=== PATIENT | female | born 1935 | race Caucasian/White ===

== ENCOUNTER 2017-08-13 19:07 | Emergency (ER) | payer OTHER ==
--- NOTE | 2017-08-13 19:15 | PDOC ---
History of Present Illness - General History Source: Patient, Family, Old Records Exam Limitations: No Limitations - History of Present Illness Initial Comments: 08/13/17 21:00 The patient is a 82 year old female from home and presenting with her son, who presents to the emergency department with right shoulder pain onset today. She reports that she was cooking today when her shoulder pain began and decided to come to the ED for evaluation. She describes her pain as ranging from mild to moderate, constant, sharp and worsening, with radiation to the neck, chest and epigastric region. The son notes that the patient took 2 Tylenols today with little to no relief of her symptoms, as well as a heating pad with little to no relief. She also reports shortness of breath, which she notes is secondary to her pain. She denies any kind of fall or injury. The patient is right hand dominant. The patient denies chest pain, headache and dizziness. Denies fever, chills, nausea, vomit, diarrhea and constipation. Denies dysuria, frequency, urgency and hematuria. PAST MEDICAL HISTORY: HLD PAST SURGICAL HISTORY: Bakers Cyst FAMILY HISTORY: no pertinent history SOCIAL HISTORY: Pt lives with family and is retired MEDICATIONS: reviewed General: No fevers or chills, no weakness, no weight loss HEENT: No change in vision. No sore throat,. No ear pain CardioVascular: No chest pain or shortness of breath Respiratory:No cough, or wheezing. Gastrointestinal: No nausea, vomiting, diarrhea or constipation, No rectal bleeding Genitourinary: No dysuria, hematuria, or frequency Musculoskeletal: (+) Right shoulder pain. Neck pain. No joint or muscle pain or swelling Neurologic: No headache, vertigo, dizziness or loss of consciousness Psychiatric: nor depression Skin: No rashes or easy bruising Endocrine: no increased thirst or abnormal weight change Allergic: no skin or latex allergy All other systems reviewed and normal General: Well-nourished well-developed individual, no acute distress HEENT: Throat: Normal, tonsils normal, no erythema or exudate Neck: Supple, no meningeal signs, no lymphadenopathy Eyes::Pupils equal reactive and round, extraocular motion intact Chest: Nontender to palpation Cardiac: S1-S2 normal, regular rate and rhythm, no murmurs rubs or gallops Respiratory: Lungs clear to auscultation bilateral Abdomen: Soft, nondistended, normal bowel sounds, nontender to palpation diffusely Extremities: Warm, dry, no cyanosis, clubbing, or edema Skin: No rashes Neuro: Alert and oriented x3, nonfocal exam, grossly intact, normal gait Psych: Normal mood and affect 08/13/17 21:01 <Evgeny Chambers - Last Filed: 08/13/17 21:03> - General History Source: Patient Exam Limitations: No Limitations - History of Present Illness Initial Comments: A portion of this note was documented by scribe services under my direction. I have reviewed the details of the note, within reason, and agree with the documentation. The case summary and management plan written by me. Assessment and plan: This is a 82-year-old female who comes in with her son for evaluation of acute onset of right shoulder pain. Patient was cutting onions when she developed the pain. There was some radiation to the neck but denied any chest pain shortness of breath or any other associated symptoms. However given the patient's age I did do a basic workup including an EKG and chest x- ray. Also had a shoulder x-ray that showed a significant amount of arthritis and several calcified area free floating bodies within the joint. Most likely patient's pain is secondary to entrapment of one of those calcified spurs. Patient was given some morphine here in the emergency room as she is unable to take any NSAIDs secondary to severe ALLERGIC reaction to them. Patient put in a sling and given a prescription for some Percocet and will follow-up with her orthopedist. <Anant Robbins I - Last Filed: 08/13/17 23:03> - General Chief Complaint: Pain, Acute Stated Complaint: RIGHT SHOULDER PAIN Time Seen by Provider: 08/13/17 19:13 Past History <Evgeny Chambers - Last Filed: 08/13/17 21:03> - Past Medical History Anemia: No Asthma: No Cancer: Yes Cardiac Disorders: No CVA: No COPD: No CHF: No Dementia: No Diabetes: No GI Disorders: No Disorders: No HTN: No Hypercholesterolemia: Yes Liver Disease: No Seizures: No Thyroid Disease: No - Surgical History Abdominal Surgery: No Appendectomy: No Cardiac Surgery: No Cholecystectomy: No Lung Surgery: No Neurologic Surgery: No Orthopedic Surgery: Yes (bakers cyst) - Immunization History Td Vaccination: No - Suicide/Smoking/Psychosocial Hx Smoking Status: No Smoking History: Never smoked Have you smoked in the past 12 months: No Number of Cigarettes Smoked Daily: 0 Hx Alcohol Use: No Drug/Substance Use Hx: No Substance Use Type: None Hx Substance Use Treatment: No <Anant Robbins I - Last Filed: 08/13/17 23:03> - Past Medical History Allergies/Adverse Reactions: Allergies Allergy/AdvReac Type Severity Reaction Status Date / Time ibuprofen Allergy Severe Difficulty Verified 08/13/17 19:14 Breathing Home Medications: Ambulatory Orders Atenolol [Tenormin -] 25 mg PO DAILY #30 tablet 03/29/12 Atorvastatin Ca [Lipitor] 40 mg PO HS #30 tablet 03/29/12 Warfarin Sodium [Coumadin] 6 mg PO DAILY 12/28/15 Oxycodone HCl/Acetaminophen [Percocet 5-325 mg Tablet] 1 tab PO Q6H #20 tablet MDD 4 08/13/17 *Physical Exam - Vital Signs Last Vital Signs Temp Pulse Resp BP Pulse Ox 97.9 F 83 20 169/83 98 08/13/17 19:17 08/13/17 19:17 08/13/17 19:17 08/13/17 19:17 08/13/17 19:17 <Evgeny Chambers - Last Filed: 08/13/17 21:03> Heart Score/ECG Review #1 ECG reviewed & interpreted by me at: 20:49 08/13/17 20:49 Ventricular rate: 81 bpm Atrial Fibrillation. Right bundle branch block. <Evgeny Chambers - Last Filed: 08/13/17 21:03> ED Treatment Course - LABORATORY CBC & Chemistry Diagram: 08/13/17 20:40 08/13/17 20:40 <Evgeny Chambers - Last Filed: 08/13/17 21:03> - LABORATORY CBC & Chemistry Diagram: 08/13/17 20:40 08/13/17 20:40 <Anant Robbins I - Last Filed: 08/13/17 23:03> *DC/Admit/Observation/Transfer - Attestations Scribe Attestion: 08/13/17 21:03 Documentation prepared by Evgeny Alee Lombert, acting as medical office receptionist assistant for Anant Robbins MD <Evgeny Chambers - Last Filed: 08/13/17 21:03> - Discharge Dispostion Admit: No <Anant Robbins I - Last Filed: 08/13/17 23:03> Diagnosis at time of Disposition: Right shoulder pain Qualifiers: Chronicity: acute Qualified Code(s): M25.511 - Pain in right shoulder - Discharge Dispostion Disposition: HOME Condition at time of disposition: Stable - Prescriptions Prescriptions: Oxycodone HCl/Acetaminophen [Percocet 5-325 mg Tablet] 1 tab PO Q6H #20 tablet MDD 4 - Referrals Referrals: Michael Taylor MD [Primary Care Provider] - - Patient Instructions Additional Instructions: Take Tylenol for the pain during the day. Wear the sling during the day for comfort. At the nighttime if you're having a hard time sleeping or in a lot of pain you can take Percocet one tablet as often as every 4-6 hours if needed and the Percocet is too strong you can cut it in half and take a half a tablet instead. Call your orthopedist at [phone] for an appointment. Return to the emergency department immediately with ANY new, persistent or worsening symptoms. Continue any medications as previously prescribed by your physician. You should follow up with your primary doctor as soon as possible regarding today's emergency department visit. . Please make sure your doctor reviews the results of your emergency evaluation. Thank you for coming to the Emergency Department today for your care. It was a pleasure to see you today. Please note that your evaluation is INCOMPLETE until you follow-up with your doctor. - Post Discharge Activity
[2017-08-13 19:22] VITALS: BP 169/83; PULSE 83; TEMP 97.9; BMI 31.7
[2017-08-13] MEDS ORDERED: morphine CARPU-JECT 2 MG/1 ML DISP.SYRIN IVPUSH ONE (20:54)
[2017-08-13] MEDS ORDERED: morphine CARPU-JECT 2 MG/1 ML DISP.SYRIN ONE (20:58)
[2017-08-13 21:18] LABS: EOS % 0.2 % (0-4.5); HEMATOCRIT 42.9 % (32.4-45.2); HEMOGLOBIN 14.6 GM/dl (10.7-15.3); MCH 29.2 pg (25.7-33.7); MEAN CELL VOLUME 85.9 fl (80-96); MEAN PLT VOLUME 9.1 fl (7.5-11.1); MONO % 4.4 % (3.8-10.2); NEUT % 86.4 % (42.8-82.8); PLATELET COUNT 199 K/MM3 (134-434); RDW 12.9 % (11.6-15.6); WHITE BLOOD COUNT 10.2 K/mm3 (4.0-10.8)
[2017-08-13 21:22] LABS: INR 2.72 (0.82-1.09); PROTHROMBIN TIME (PATIENT) 29.9 SEC (10.2-13.0)
[2017-08-13 21:29] LABS: ALBUMIN 4.3 g/dl (3.5-5.0); ALK PHOS 65 U/L (32-92); ANION GAP 9 (8-16); BLOOD UREA NITROGEN 26 mg/dl (7-18); CALCIUM 9.2 mg/dl (8.4-10.2); CHLORIDE 101 mmol/L (98-107); CO2 25 mmol/L (22-28); GLUCOSE,RANDOM 175 mg/dl (74-106); SGOT/AST 26 U/L (10-42); SGPT/ALT 19 U/L (10-40); SODIUM 135 mmol/L (136-145); TOT PROT 7.3 g/dl (6.4-8.3)
[2017-08-13 21:38] LABS: BILIRUBIN,TOTAL 0.6 mg/dl (0.2-1.0); CREATININE 0.8 mg/dl (0.6-1.3)
--- NOTE | 2017-08-14 11:39 | EKG ---
Test Reason : Blood Pressure : / mmHG Vent. Rate : 081 BPM Atrial Rate : 072 BPM P-R Int : 000 ms QRS Dur : 136 ms QT Int : 418 ms P-R-T Axes : 000 -20 023 degrees QTc Int : 485 ms ATRIAL FIBRILLATION RIGHT BUNDLE BRANCH BLOCK ABNORMAL ECG NO PREVIOUS ECGS AVAILABLE Confirmed by RYAN DE PAZ, ARABELLA ([id number]) on 08/14/2017 11:39:10 AM Referred By: DR TEE Confirmed By:ARABELLA DAVIS MD
== END 2017-08-13 22:04 | disposition home or self-care (01) ==
LOC: FER 19:07
PROC: 3E033NZ Introduction of Analgesics, Hypnotics, Sedatives into Peripheral Vein, Percutaneous Approach (ICD-10-PCS; principal; 2017-08-13)
DX: M25.511 Pain in right shoulder (principal); E78.5 Hyperlipidemia, unspecified
CPT/HCPCS: 36415; 71045-TC-FY; 73030-TC-RT-FY; 80053; 82550; 84484; 85025; 85610; 93005; 99281-25

== ENCOUNTER 2018-03-24 16:12 | Observation (INO) | payer OTHER ==
--- NOTE | 2018-03-24 16:20 | PDOC ---
Rapid Medical Evaluation Chief Complaint: CVA/TIA Time Seen by Provider: 03/24/18 16:17 Medical Evaluation: Allergies Allergy/AdvReac Type Severity Reaction Status Date / Time ibuprofen Allergy Severe Difficulty Verified 03/24/18 16:17 Breathing 03/24/18 16:18 I have performed a brief in person evaluation of this patient. The patient presents with a chief complaint of: "Slurred speech." Pertinent PE: Skin: Clear Lungs: Clear Heart: RRR MS: No pain upon palpation to the cervical, thoracic or lumbar spine Neuro: Alert and oriented. Smile is symmetric, 5/5 strength in UE and LE groups , no protonator drift Psych: Appropriate affect I have ordered the following: Straight to the back for further evaluation. Charge nurse notified. The patient will proceed to: pt will go to the main ED for further evaluation. Discharge Disposition - Diagnosis Slurred speech - Referrals Referrals: Michael Taylor MD [Primary Care Provider] - - Patient Instructions - Post Discharge Activity
[2018-03-24 16:22] VITALS: BMI 31.9
[2018-03-24] MEDS: SODIUM CHLORIDE 1,000 ML IV SCH ×2 (16:53→17:23)
[2018-03-24 17:06] LABS: BASO % 0.3 % (0-2.0); EOS % 0.8 % (0-4.5); HEMATOCRIT 41.8 % (32.4-45.2); HEMOGLOBIN 13.9 GM/dL (10.7-15.3); LYMPH % 26.2 % (8-40); MCH 29.4 pg (25.7-33.7); MCHC 33.3 g/dl (32.0-36.0); MEAN CELL VOLUME 88.3 fl (80-96); MEAN PLT VOLUME 9.4 fl (7.5-11.1); NEUT % 61.7 % (42.8-82.8); PLATELET COUNT 192 K/MM3 (134-434); RBC 4.74 M/mm3 (3.60-5.2); RDW 14.6 % (11.6-15.6); WHITE BLOOD COUNT 6.4 K/mm3 (4.0-10.0)
[2018-03-24 17:14] LABS: INR 1.33 (0.83-1.09); PROTHROMBIN TIME (PATIENT) 15.7 SEC (9.7-13.0)
[2018-03-24 17:15] LABS: URINE APPEARANCE CLEAR; URINE BILIRUBIN NEGATIVE (<2.0 mg/dL); URINE COLOR COLORLESS; URINE GLUCOSE (UA) NEGATIVE (NEGATIVE); URINE KETONE NEGATIVE (NEGATIVE); URINE LEUK ESTERASE 1+ (NEGATIVE); URINE NITRITE NEGATIVE (NEGATIVE); URINE PROTEIN NEGATIVE (NEGATIVE); URINE UROBILINOGEN NEGATIVE mg/dL (0.2-1.0)
[2018-03-24 17:30] LABS: ALBUMIN 3.8 g/dl (3.4-5.0); ALK PHOS 65 U/L (45-117); ANION GAP 6 MMOL/L (8-16); BILIRUBIN,TOTAL 0.5 mg/dL (0.2-1); BLOOD UREA NITROGEN 25 mg/dL (7-18); CALCIUM 9.7 mg/dL (8.5-10.1); CHLORIDE 106 mmol/L (98-107); CHOLESTEROL 148 mg/dL (50-200); CO2 28 mmol/L (21-32); CREATININE 0.9 mg/dL (0.55-1.3); GLUCOSE,RANDOM 115 mg/dL (74-106); HDL CHOLESTEROL 63 mg/dL (40-60); POTASSIUM 4.4 mmol/L (3.5-5.1); SGOT/AST 20 U/L (15-37); SGPT/ALT 20 U/L (13-61); SODIUM 140 mmol/L (136-145); TOT PROT 7.2 g/dl (6.4-8.2); TRIGLYCERIDES 131 mg/dL (0-150)
[2018-03-24 17:35] LABS: EPI CELLS RARE /HPF (FEW)
--- NOTE | 2018-03-24 17:52 | PDOC ---
History of Present Illness - General Chief Complaint: CVA/TIA Stated Complaint: SLURRED SPEECH Time Seen by Provider: 03/24/18 16:17 History Source: Patient Exam Limitations: No Limitations - History of Present Illness Initial Comments: 03/24/18 17:50 This is an 83 YOF with h/o TIA in 2010 who p/w word-finding difficulty today, onset 2:50pm while she was on the phone with a family member in the middle of a conversation. The patient reportedly called her son who came over to her home. The episode lasted until about 3:20pm (30 minutes total), after which time her symptoms resolved completely without any medication or additional intervention. Son called her PCP's office, instructed to come to ED. Pt and son deny any other sxs today, no n/t/w, no falls/OLIVO/neck pain The patient had been on warfarin for years but switched to a NOAC in the past 6 weeks. Here in the ED, the patient states she feels well, denies any pain or other recent symptoms. Past History - Past Medical History Allergies/Adverse Reactions: Allergies Allergy/AdvReac Type Severity Reaction Status Date / Time ibuprofen Allergy Severe Difficulty Verified 03/24/18 16:17 Breathing Home Medications: Ambulatory Orders Atenolol [Tenormin -] 25 mg PO DAILY #30 tablet 03/29/12 Atorvastatin Ca [Lipitor] 40 mg PO HS #30 tablet 03/29/12 Rivaroxaban [Xarelto -] 20 mg PO DAILY 03/24/18 Spironolactone 25 mg PO ASDIR 03/24/18 Anemia: No Asthma: No Cancer: Yes (BREAST CA) Cardiac Disorders: Yes (A.FIB) CVA: Yes COPD: No CHF: No Dementia: No Diabetes: No GI Disorders: No Disorders: No HTN: No Hypercholesterolemia: Yes Liver Disease: No Seizures: No Thyroid Disease: No - Surgical History Abdominal Surgery: No Appendectomy: No Cardiac Surgery: No Cholecystectomy: No Lung Surgery: No Neurologic Surgery: No Orthopedic Surgery: Yes (bakers cyst) - Immunization History Td Vaccination: No - Suicide/Smoking/Psychosocial Hx Smoking Status: No Smoking History: Never smoked Have you smoked in the past 12 months: No Number of Cigarettes Smoked Daily: 0 Information on smoking cessation initiated: No Hx Alcohol Use: No Drug/Substance Use Hx: No Substance Use Type: None Hx Substance Use Treatment: No Review of Systems - Review of Systems Able to Perform ROS?: Yes Constitutional: No: Chills, Fever, Unexplained wgt Loss HEENTM: No: Nose Congestion, Throat Pain Respiratory: No: Cough, Shortness of Breath Cardiac (ROS): No: Chest Pain, Palpitations ABD/GI: No: Constipated, Diarrhea, Nausea, Vomiting : No: Burning, Dysuria Musculoskeletal: No: Back Pain, Neck Pain Integumentary: No: Bruising, Rash Neurological: Yes: Other (worse finding difficulty (resolved)). No: Headache, Numbness, Tingling, Weakness, Dizziness Endocrine: No: Unexplained Weight Gain, Unexplained Weight Loss *Physical Exam - Vital Signs Last Vital Signs Temp Pulse Resp BP Pulse Ox 98 F 77 18 179/79 H 100 03/24/18 16:18 03/24/18 16:18 03/24/18 16:18 03/24/18 16:18 03/24/18 16:18 GENERAL: very pleasant elderly female with [place]ish accent who is accompanied by her son at bedside, nontoxic and well-appearing, nourished, A/Ox4, no acute distress, speaking in full sentences, answers questions appropriately HEENT: PERRLA, EOMI, moist mucous membranes, no posterior pharyngeal erythema, no tonsillar swelling or exudates, no cervical lymphadenopathy NECK: No midline ttp, no spinal stepoff or deformity, full ROM, supple CARDIOVASCULAR: Regular rate and rhythm, normal S1S2, no MGR, radial and DP pulses 2+ and symmetric, capillary refill <2 seconds, extremities warm and well- perfused LUNGS/RESPIRATORY: No respiratory distress, normal and symmetric chest movements during respirations, lungs CTA bilaterally, equal breath sounds, no cyanosis, no nail clubbing GI/ABDOMEN: Normal symmetric appearance, normoactive bowel sounds, soft, no tenderness to palpation, no midline pulsatile masses, no palpated organomegaly : No CVA tenderness BACK: No midline ttp or stepoff or deformity of thoracic or lumbar spine EXTREMITIES: distal pulses 2+, warm and well-perfused, no LE edema SKIN: Warm and dry, no pallor, no jaundice, no bruising, no rash, no skin breakdown, no cuts, no lesions NEUROLOGICAL: GCS 15, CN II-XII grossly intact, gait not tested, no truncal ataxia, moving all extremities, 5/5 strength proximally and distally, no facial droop, no decreased sensation, normal [id number], no pronator drift NIH Stroke Scale - Last Known Well Date/Time & Onset Date Last Known Well: 03/24/18 Time Last Known Well: 14:50 - Initial Evaluation Level of consciousness: Alert Ask patient the month and their age: Answers both correctly Ask patient to open & close eyes; make fist and let go: Obeys both correctly Best gaze (horizontal eye movement): Normal Visual field testing: No visual field loss Facial paresis (Show teeth/raise eyebrows/close eyes tight): Normal symmetrical movement Motor Function: Left Arm: Normal Motor Function: Right Arm: Normal (extends arm 90 (or 45) degrees for 10 seconds without drift Motor Function: Left Leg: Normal (extends leg 30 degrees for 5 seconds without drift) Motor Function: Right Leg: Normal (extends leg 30 degrees for 5 seconds without drift) Limb Ataxia: No ataxia Sensory(Use pinprick test arms,legs,trunk,face/side to side): Normal Best language (Describe picture, name items, read sentences): No Aphasia Dysarthria (read several words): Normal articulation Extinction and Inattention: No abnormality - Total Score NIH Stroke Scale Score: 0 tPA Exclusion Checklist 0-3hr - Time Elapsed Date last known well: 03/24/18 Time last known well: 14:50 Elaspsed time: 4 Day(s) and 5 Hour(s) and 36 Minutes - Thrombolytic Therapy Candidate Is the patient eligible for Thrombolytic Therapy?: No - Exclusion Criteria 0-3hr SBP greater than 185 or DBP greater than 110mmHg despite tx: No Recent IC/spinal surgery,head trauma or stroke w/in last 3mo: No Hx of previous IC hemorrhage, IC neoplasm, AVM or aneurysm: Yes Active internal bleeding: No Blding diathesis(low plt ct, inc PTT,INR>1.7 or use of NOAC): No Symptoms suggest subarachnoid hemorrhage: No CT demonstrates multilobar infarct(>1/3 cerebral hemiphere): No Arterial puncture at noncompressible site in previous 7 days: No Blood glucose concentration less than 50mg/dL (2.7mmol/L): No - Relative Exclusion Criteria 0-3h Life expectancy <1yr/severe co-morbid illness/DRY HEAT ROOM ATTENDANT on admit: No : No Patient/family refused: No Rapid improvement: Yes Stroke severity too mild: Yes Recent acute IL (w/in previous 3 months): No Seizure at onset with postictal residual neuro impairments: No Major surgery or serious trauma w/in previous 14 days: No Recent GI or hemorrhage (w/in previous 21 days): No - Ineligibility reason(s) Reasons No tPA given: See reason(s) noted above Critical Care Time/MDM Note - Medical Decision Making Note: Initial Vital Signs Pulse Ox 100 03/24/18 16:15 Vital Signs Temperature 98 F 03/24/18 16:18 Pulse Rate 77 03/24/18 16:18 Respiratory Rate 18 03/24/18 16:18 Blood Pressure 179/79 H 03/24/18 16:18 O2 Sat by Pulse Oximetry (%) 100 03/24/18 16:18 03/24/18 18:[address] Santana. I have spoken with Dr. Taylor who requests admission to hospitalist. He will see the patient in the morning. 03/24/18 19:19 Microblog has been sent to [place]. I spoke with Dr. Santana, will see in the AM, carotid doppler to be ordered. 03/24/18 19:23 I spoke with PULLING UNIT OPERATOR Maribell Sterling, patient to go to Tele Obs. Order updated with Dr. Agustin's name. 03/24/18 20:45 Repeat Troponin and EKG ordered for this time. *DC/Admit/Observation/Transfer Diagnosis at time of Disposition: TIA (transient ischemic attack) - Discharge Dispostion Disposition: HOME Condition at time of disposition: Good Decision to Admit order: Yes - Referrals - Patient Instructions - Post Discharge Activity
--- NOTE | 2018-03-24 19:26 | PDOC ---
Attending Attestation - Resident Resident Name: Maria LMattie - ED Attending Attestation I have performed the following: I have examined & evaluated the patient, The case was reviewed & discussed with the resident, I agree w/resident's findings & plan, Exceptions are as noted - HPI HPI: 03/24/18 19:22 83 yo female BIBA for a 30 minute period of word searching and some confusion that resolved by the time of her arrival to the ER -she did have a history of pervious TIA and is on eliquis for her afib - Physicial Exam PE: 03/24/18 20:32 wnwd 83 yo Italain speaking 83 yo female in no acute distress at this time head ncat eyes gaurang eomi neck supple,no jvd lungs cta b/l cvs irreg irreg abd protuberant nontender extremities no deformities neuro axox3 upon arrival , motor strength 5/5, no clonus, verbal ,no gross focal neuro deficits - Medical Decision Making 03/24/18 22:11 NIHSS = 0 pt will be admitted for TIA, neuro consulted
--- NOTE | 2018-03-24 19:31 | HP ---
CHIEF COMPLAINT: Difficulty Speaking PCP: Dr. Taylor HISTORY OF PRESENT ILLNESS: This is a 83 y/o woman with a PMHx of Afib(on Xarelto), HLD, TIA, Breast Ca (s/ p R-Mastectomy), OA. Who presents to the ED with her son who reports 30 minute episode of "word finding" difficulty. The patient and her son denies slurred speech, facial asymmetry, numbness/tingling, blurred vision, OLIVO. Patient denies fever, chills, cough, SOB, CP, palpitations, AP, N/V/D, constipation, dysuria. ER course was notable for: (1) Head CT- neg ICH, chronic microvascular changes (2) Carotid Doppler- no evidence of hemodynamically significant stenosis (3) Troponin 0.06 Recent Travel: None PAST MEDICAL HISTORY: See HPI PAST SURGICAL HISTORY: R- Mastectomy Social History: Smoking: Never Alcohol: None Drugs: None Lives with family, Independent Family History: Father: Stomach Ca Mother: Breast Ca Son: Prostate Ca Daughter: Breast Ca Allergies ibuprofen Allergy (Severe, Verified 03/24/18 16:17) Difficulty Breathing HER THROAT CLOSES(ANGIOEDEMA). PER SON HOME MEDICATIONS: Home Medications Medication Instructions Recorded Atenolol [Tenormin -] 25 mg PO DAILY #30 tablet 03/29/12 Atorvastatin Ca [Lipitor] 40 mg PO HS #30 tablet 03/29/12 Rivaroxaban [Xarelto -] 20 mg PO DAILY 03/24/18 Spironolactone 25 mg PO ASDIR 03/24/18 REVIEW OF SYSTEMS CONSTITUTIONAL: Absent: fever, chills, diaphoresis, generalized weakness, malaise, loss of appetite, weight change HEENT: Absent: rhinorrhea, nasal congestion, throat pain, throat swelling, difficulty swallowing, mouth swelling, ear pain, eye pain, visual changes CARDIOVASCULAR: Absent: chest pain, syncope, palpitations, irregular heart rate, lightheadedness , peripheral edema RESPIRATORY: Absent: cough, shortness of breath, dyspnea with exertion, orthopnea, wheezing, stridor, hemoptysis GASTROINTESTINAL: Absent: abdominal pain, abdominal distension, nausea, vomiting, diarrhea, constipation, melena, hematochezia GENITOURINARY: Absent: dysuria, frequency, urgency, hesitancy, hematuria, flank pain, genital pain MUSCULOSKELETAL: Absent: myalgia, arthralgia, joint swelling, back pain, neck pain SKIN: Absent: rash, itching, pallor HEMATOLOGIC/IMMUNOLOGIC: Absent: easy bleeding, easy bruising, lymphadenopathy, frequent infections ENDOCRINE: Absent: unexplained weight gain, unexplained weight loss, heat intolerance, cold intolerance NEUROLOGIC: Change in Speech, mental status changes Absent: headache, focal weakness or paresthesias, dizziness, unsteady gait, seizure, bladder or bowel incontinence PSYCHIATRIC: Absent: anxiety, depression, suicidal or homicidal ideation, hallucinations. PHYSICAL EXAMINATION Vital Signs - 24 hr 03/24/18 03/24/18 16:15 16:18 Temperature 98 F Pulse Rate 77 Respiratory 18 Rate Blood Pressure 179/79 H O2 Sat by Pulse 100 100 Oximetry (%) GENERAL: Awake, alert, and fully oriented, in no acute distress. HEAD: Normal with no signs of trauma. EYES: Pupils equal, round and reactive to light, extraocular movements intact, sclera anicteric, conjunctiva clear. No lid lag. EARS, NOSE, THROAT: Ears normal, nares patent, oropharynx clear without exudates. Moist mucous membranes. NECK: Normal range of motion, supple without lymphadenopathy, JVD, or masses. LUNGS: Breath sounds equal, clear to auscultation bilaterally. No wheezes, and no crackles. No accessory muscle use. HEART: Regular rate and rhythm, normal S1 and S2 without murmur, rub or gallop. ABDOMEN: Soft, nontender, not distended, normoactive bowel sounds, no guarding, no rebound, no masses. No hepatomegaly or splenomegaly. MUSCULOSKELETAL: Normal range of motion at all joints. No bony deformities or tenderness. No CVA tenderness. UPPER EXTREMITIES: 2+ pulses, warm, well-perfused. No cyanosis. No clubbing. No peripheral edema. LOWER EXTREMITIES: 2+ pulses, warm, well-perfused. No calf tenderness. No peripheral edema. NEUROLOGICAL: Cranial nerves II-XII intact. Normal speech. Gait not observed. PSYCHIATRIC: Cooperative. Good eye contact. Appropriate mood and affect. SKIN: Warm, dry, normal turgor, no rashes or lesions noted, normal capillary refill. Laboratory Results - last 24 hr 03/24/18 03/24/18 03/24/18 16:30 16:30 16:30 WBC 6.4 RBC 4.74 Hgb 13.9 Hct 41.8 MCV 88.3 MCH 29.4 MCHC 33.3 RDW 14.6 Plt Count 192 MPV 9.4 Absolute Neuts (auto) 4.0 Neutrophils % 61.7 Lymphocytes % 26.2 Monocytes % 11.0 H Eosinophils % 0.8 Basophils % 0.3 Nucleated RBC % 0 PT with INR 15.70 H INR 1.33 H Sodium 140 Potassium 4.4 Chloride 106 Carbon Dioxide 28 Anion Gap 6 L BUN 25 H Creatinine 0.9 Creat Clearance w eGFR 59.51 Random Glucose 115 H Calcium 9.7 Total Bilirubin 0.5 AST 20 ALT 20 Alkaline Phosphatase 65 Creatine Kinase 69 Troponin I 0.06 H Total Protein 7.2 Albumin 3.8 Triglycerides 131 Cholesterol 148 Total LDL Cholesterol 78 HDL Cholesterol 63 H Urine Color Urine Appearance Urine pH Ur Specific [place] Urine Protein Urine Glucose (UA) Urine Ketones Urine Blood Urine Nitrite Urine Bilirubin Urine Urobilinogen Ur Leukocyte Esterase Urine WBC (Auto) Urine RBC (Auto) Ur Epithelial Cells Blood Type Antibody Screen 03/24/18 03/24/18 16:30 16:40 WBC RBC Hgb Hct MCV MCH MCHC RDW Plt Count MPV Absolute Neuts (auto) Neutrophils % Lymphocytes % Monocytes % Eosinophils % Basophils % Nucleated RBC % PT with INR INR Sodium Potassium Chloride Carbon Dioxide Anion Gap BUN Creatinine Creat Clearance w eGFR Random Glucose Calcium Total Bilirubin AST ALT Alkaline Phosphatase Creatine Kinase Troponin I Total Protein Albumin Triglycerides Cholesterol Total LDL Cholesterol HDL Cholesterol Urine Color Colorless Urine Appearance Clear Urine pH 5.0 Ur Specific [place] 1.004 L Urine Protein Negative Urine Glucose (UA) Negative Urine Ketones Negative Urine Blood 1+ H Urine Nitrite Negative Urine Bilirubin Negative Urine Urobilinogen Negative Ur Leukocyte Esterase 1+ H Urine WBC (Auto) 4 Urine RBC (Auto) None Ur Epithelial Cells Rare Blood Type O POSITIVE Antibody Screen Negative ASSESSMENT/PLAN: 83 y/o woman PMHx of: Afib (on Xarelto), HLD, Breast Ca. Placed on Tele Observation for TIA for further evaluation of their emergent condition. Plan: 1. Neurology: TIA Continue Cardiac monitoring Serial Enzymes NIHSS [address] neg ICH, chronic bilateral basal ganglia infarcts, chronic microvascular ischemic changes Appreciate Neurology consult Carotid Doppler- mild atherosclerotic disease. No evidence of hemodynamically significant stenosis Neuro checks HOB elevated Fall Precautions Monitor CBC, BMP Lipid Panel, TSH, HgbA1c in am 2. Cardiovascular: Atrial Fibrillation HLD [id number] 4 Continue Xarelto EKG-pending Continue home meds 3. Oncology: Breast Ca s/p R-Mastectomy No chemo, RT In remission f/u with Oncology as needed FEN PO fluids as tolerated Replete Lytes prn Low Na Low Cholesterol Diet DVT ppx OOB SCDs Continue Xarelto Code Status: Full Code Dispo: Tele Observation Problem List - Problem (1) TIA (transient ischemic attack) Code(s): G45.9 - TRANSIENT CEREBRAL ISCHEMIC ATTACK, UNSPECIFIED (2) A-fib Code(s): I48.91 - UNSPECIFIED ATRIAL FIBRILLATION (3) HLD (hyperlipidemia) Code(s): E78.5 - HYPERLIPIDEMIA, UNSPECIFIED (4) Breast CA Code(s): C50.919 - MALIGNANT NEOPLASM OF UNSP SITE OF UNSPECIFIED FEMALE BREAST Visit type - Emergency Visit Emergency Visit: Yes ED Registration Date: 03/24/18 Care time: The patient presented to the Emergency Department on the above date and was hospitalized for further evaluation of their emergent condition. - New Patient This patient is new to me today: Yes Date on this admission: 03/24/18 - Critical Care Critical Care patient: No
[2018-03-24] MEDS: ATORVASTATIN CA 40 MG TABLET (FP) PO SCH (23:00)
[2018-03-24] MEDS ORDERED: RIVAROXABAN 20 MG TABLET PO ONE (23:00)
[2018-03-24] MEDS ORDERED: ATORVASTATIN CA 40 MG TABLET (FP) ONE (23:17)
[2018-03-25 06:56] LABS: BASO % 0.3 % (0-2.0); EOS % 1.3 % (0-4.5); HEMATOCRIT 39.1 % (32.4-45.2); LYMPH % 33.5 % (8-40); MCH 29.1 pg (25.7-33.7); MCHC 33.4 g/dl (32.0-36.0); MEAN CELL VOLUME 87.4 fl (80-96); MONO % 11.5 % (3.8-10.2); NEUT % 53.4 % (42.8-82.8); PLATELET COUNT 171 K/MM3 (134-434); RBC 4.47 M/mm3 (3.60-5.2); RDW 14.7 % (11.6-15.6); WHITE BLOOD COUNT 7.3 K/mm3 (4.0-10.0)
[2018-03-25 07:23] LABS: MAGNESIUM 2.1 mg/dL (1.8-2.4); PHOSPHOROUS 4.5 mg/dL (2.5-4.9)
[2018-03-25] MEDS ORDERED: PT OWN MED DRAWER 7, Y5N ONE ×2 (09:25→17:19)
[2018-03-25] MEDS: MULTIVITAMINS (DAILY MVI) TABLET (FP) PO SCH (09:55)
[2018-03-25] MEDS: ATENOLOL 25 MG TABLET (FP) PO SCH (09:55)
[2018-03-25] MEDS: SPIRONOLACTONE 25 MG TABLET (FP) PO SCH (09:55)
[2018-03-25] MEDS: CALCIUM 250MG/VIT-D 125 UNITS 1 COMBO TABLET PO SCH (09:55)
--- NOTE | 2018-03-25 10:50 | CONSULT ---
Admitting History and Physical - Primary Care Physician PCP: Michael Taylor - Admission History of Present Illness: This is a 83 y/o woman with a PMHx of Afib(on Xarelto), HLD, TIA, Breast Ca (s/ p R-Mastectomy), OA. Who presents to the ED with her son who reports 30 minute episode of "word finding" difficulty. Pt said there was sudden onset of anomia, which cleared after 45 minutes. She had difficulty with common words eg "I could say Parmigiana but not Mozzarella". Pt reports this happened last 7 years ago. This is my first consult with this pt. Selected Entries 03/25/18 10:42 Breakfast 75% Laboratory Tests 03/25/18 06:00 WBC 7.3 History Source: Patient, Medical Record Limitations to Obtaining History: No Limitations - Past Medical History ...: No - Smoking History Smoking history: Never smoked Have you smoked in the past 12 months: No Aproximately how many cigarettes per day: 0 - Alcohol/Substance Use Hx Alcohol Use: No History - Admission Reason For Visit: TRANSIENT ISCHEMIC ATTACK - Diagnostics X-ray: Report Reviewed CT Scan: Report Reviewed (Head CT neg ICH, chronic bilateral basal ganglia infarcts, chronic microvascular ischemic changes) - General Mental Status: Alert and Oriented, Awake and Alert, Able to Follow Commands Attention: Intact Ability to Follow Directions: Excellent Head/Neck Control: WFL - Hearing Hearing: Normal Speech Evaluation - Communication Primary Language: [place] Secondary Language: ROMANIAN (fluent) Communication: Yes: Within Normal Limits - Speech Production Able to Make Needs Known: Yes: WNL Intelligibility: Yes: WNL - Speech Characteristics Voice Loudness: Normal Voice Pitch: Yes: Normal Voice Phonatory-based Quality: Yes: Normal Speech Pattern: Normal Speech Clarity: < 100% Nasal Resonance: Normal Articulation: Yes: Precise Rate of Speech: Intact - Language/Auditory Comprehension Follows: Yes: 2 Stage Simple Commands - Language/Verbal Expression Able to Respond to Simple Queries: Yes: WNL Able to Communicate Wants and Needs: Yes: WNL Functional Communication Status: Yes: WNL - Memory/Perception [facility] Memory: Yes: WNL Short Term Memory: Yes: WNL - Swallow Evaluation/Bedside Assessment Current Nutritional Intake: Regular, Thin Liquids Oral Secretions: Yes: WFL Dentition: Yes: Adequate Facial Symmetry at Rest: Symmetrical Facial Symmetry on Retraction: Symmetrical Sensation: Normal Against Resistance Opening: Normal Against Resistance Closing: Normal Pucker Lips: Normal Smile: Normal Lingual Movement: Normal, Symmetric Lingual Speed of Movement: Normal Lingual Movement Strgth Against Opposition: Normal Lingual Movement Characteristics: Normal Velopharyngeal Movement: Normal Laryngeal Elevation: WFL Laryngeal Movement: Able to Palpate Rate of Intake: WFL Bolus Size: WFL Labial Seal: WFL Chewing: WFL Oral Prep Time: WFL A-P Transit: WFL Pocketing: None Timing of Swallow: WF Recommendations - Speech Evaluation, Impression/Plan Impression: Speech, language, swallowing, cognition grossly intact. Spontaneous recovery. - Dysphagia Impressions/Plan Swallowing Skills: [facility] Dysphagia Impressions: No Impairment *Silent aspiration: cannot be R/O at bedside - Recommendations Diet Consistency: Regular Medication Administration: Whole with water Liquids: Thin Liquids
--- NOTE | 2018-03-25 12:53 | EKG ---
Test Reason : Blood Pressure : / mmHG Vent. Rate : 070 BPM Atrial Rate : 068 BPM P-R Int : 000 ms QRS Dur : 112 ms QT Int : 428 ms P-R-T Axes : 000 -33 -13 degrees QTc Int : 462 ms ATRIAL FIBRILLATION RIGHT BUNDLE BRANCH BLOCK INFERIOR INFARCT (CITED ON OR BEFORE 24-MAR-2018) ABNORMAL ECG WHEN COMPARED WITH ECG OF 24-MAR-2018 17:35, NO SIGNIFICANT CHANGE WAS FOUND Confirmed by MD MARY, JOSELINE ([id number]) on 03/25/2018 12:53:26 PM Referred By: Confirmed By:JOSELINE HERNANDEZ MD
--- NOTE | 2018-03-25 13:07 | EKG ---
Test Reason : Blood Pressure : / mmHG Vent. Rate : 066 BPM Atrial Rate : 053 BPM P-R Int : 000 ms QRS Dur : 120 ms QT Int : 408 ms P-R-T Axes : 000 -24 -08 degrees QTc Int : 427 ms ATRIAL FIBRILLATION RIGHT BUNDLE BRANCH BLOCK INFERIOR INFARCT , AGE UNDETERMINED ABNORMAL ECG WHEN COMPARED WITH ECG OF 13-AUG-2017 20:42, INFERIOR INFARCT IS NOW PRESENT QT HAS SHORTENED Confirmed by MD MARY, JOSELINE ([id number]) on 03/25/2018 1:06:30 PM Referred By: Confirmed By:JOSELINE HERNANDEZ MD
--- NOTE | 2018-03-25 13:07 | HP ---
Admitting History and Physical - Admission Chief Complaint: 83 y.o F was BI by her son because of sudden dysarthria - unable o pronounce words and confusion? In the ER -speach improved. Had previously one similar episode 1 yr ago History of Present Illness: AFIB-chronic- previously on Coumadin-switched to Xarelto. Breast cancer. HTN Uticaria HLD History Source: Patient, Family Member, Significant Other Limitations to Obtaining History: No Limitations - Past Medical History Cardiovascular: Yes: AFIB, CHF, Hyperlipdemia Pulmonary: No: O2 Dependent, Sleep Apnea ...: No - Past Surgical History Past Surgical History: Yes: Breast Biopsy - Smoking History Smoking history: Never smoked Have you smoked in the past 12 months: No Aproximately how many cigarettes per day: 0 - Alcohol/Substance Use Hx Alcohol Use: No Home Medications - Allergies Allergies/Adverse Reactions: Allergies Allergy/AdvReac Type Severity Reaction Status Date / Time ibuprofen Allergy Severe Difficulty Verified 03/24/18 16:17 Breathing - Home Medications Home Medications: Ambulatory Orders Atenolol [Tenormin -] 25 mg PO DAILY #30 tablet 03/29/12 Atorvastatin Ca [Lipitor] 40 mg PO HS #30 tablet 03/29/12 Rivaroxaban [Xarelto -] 20 mg PO DAILY 03/24/18 Spironolactone 25 mg PO ASDIR 03/24/18 Family Disease History - Family Disease History Family History: Unremarkable Review of Systems - Review of Systems Constitutional: reports: No Symptoms Eyes: reports: No Symptoms HENT: reports: No Symptoms Neck: denies: Decreased ROM, Lumps, Pain on Movement Cardiovascular: denies: Chest Pain, Edema, Palpitations, Shortness of Breath Respiratory: denies: Cough, Exercise Intolerance, SOB Gastrointestinal: denies: Abdominal Pain, Bloating Genitourinary: reports: No Symptoms Breasts: reports: No Symptoms Reported Integumentary: reports: No Symptoms Neurological: reports: Change in Speech, Confusion Endocrine: reports: No Symptoms Psychiatric: reports: No Symptoms Physical Examination Vital Signs: Vital Signs Temperature 98.4 F 03/25/18 09:00 Pulse Rate 82 03/25/18 09:00 Respiratory Rate 18 03/25/18 09:00 Blood Pressure 154/97 03/25/18 09:00 O2 Sat by Pulse Oximetry (%) 95 03/25/18 09:00 Constitutional: Yes: Anxious Eyes: Yes: Conjunctiva Clear, EOM Intact HENT: Yes: Atraumatic, Normocephalic. No: Drooling Neck: Yes: Supple, Trachea Midline. No: Lymphadenopathy Cardiovascular: Yes: Pulse Irregular, S1, S2. No: Tachycardia, JVD Respiratory: Yes: Regular, CTA Bilaterally. No: Accessory Muscle Use Gastrointestinal: Yes: Normal Bowel Sounds, Soft. No: Abdomen, Obese, Ascites, Tenderness ...Rectal Exam: Yes: Deferred Renal/: No: Anuria, Bladder Distention, CVA Tenderness - Left, CVA Tenderness - Right Breast(s): Yes: Other (previous breast ca Right mustectomy) Extremities: No: Amputation, Calf Tenderness Edema: No Peripheral Pulses WNL: No Neurological: Yes: Alert, Oriented. No: Aphasia, Ataxia, Dysarthria ...Motor Strength: WNL Psychiatric: Yes: Alert, Oriented. No: Agitated, Suicidal Ideation Labs: CBC, BMP 03/25/18 06:00 03/24/18 16:30 Imaging - Results Chest X-ray: Report Reviewed Cat Scan: Report Reviewed EKG: Image Reviewed Problem List - Problems (1) A-fib Assessment/Plan: Continue Xarelto Code(s): I48.91 - UNSPECIFIED ATRIAL FIBRILLATION Qualifiers: Atrial fibrillation type: chronic Qualified Code(s): I48.2 - Chronic atrial fibrillation (2) HLD (hyperlipidemia) Assessment/Plan: Atorva 40 Code(s): E78.5 - HYPERLIPIDEMIA, UNSPECIFIED (3) TIA (transient ischemic attack) Assessment/Plan: Noted CT scan MRI brain Neuro Carotids-neg US Code(s): G45.9 - TRANSIENT CEREBRAL ISCHEMIC ATTACK, UNSPECIFIED
[2018-03-25] MEDS: SODIUM CHLORIDE 1,000 ML IV SCH (18:01)
[2018-03-25] MEDS: RIVAROXABAN 20 MG TABLET PO SCH (18:03)
--- NOTE | 2018-03-25 21:00 | CONSULT ---
Consult - text type - Consultation Consultation Note: NEUROLOGY CONSULTATION is greatly appreciated: This 83 yo RH woman with h/o breast cancer, HTN, Hypercholesterolemia, ASHD and AFib lives alone and is fully independent. OA of the knees. Maintained on Atenolol, atorvastatin, spironolactone and Xarelto. About 7 years ago she was admitted to [facility] after the sudden onset of transient speech arrest. Apparently diagnosed as TIA with newly discovered AFib. Started on coumadin at that time and changed to Xarelto a few weeks [employer]. Yesterday she was in her [place] and was talking on the phone with relatives in [place] when she lost the ability to "get the words out." She called her son at work who immediately knew something was wrong and brought her to the hospital. Speech gradually improved in [address] of head (reviewed): Scattered microvascular changes. MRI (reviewed): Mild atrophy and microvascular changes. Suspicious, oval, intraparenchymal left temporal horn lesion without edema. CONTRERAS: No bruits. No head trauma. Cor irreg. NEURO: MS/speech: Normal CN II-XII: normal Motor: No drift or tremor. Normal strength. Min cogwheel rigidity (R> L). Areflexic in legs. Toes downgoing. Coord: No FTN dystaxia Sensory normal. Romberg neg Gait: Sl shuffle. Stable. IMP: Essentially normal neurological exam. T.I.A. vs. Partial seizure with speech arrest. Possible left temporal lobe lesion on MRI. Suggest: MRI of brain with contrast to define possible left temporal lobe lesion. Further recommendations will follow. Continue Xarelto vs AFib. Thank you very much, Yanick Santana MD
[2018-03-25] MEDS: ATORVASTATIN CA 40 MG TABLET (FP) PO SCH (21:19)
--- NOTE | 2018-03-26 07:44 | PN ---
Progress Note, Physician Chief Complaint: Dr Santana consult appreciated. Possible left temporal lobe lesion on MRI. Contrast MRI-ordered. Official MRI-pending History of Present Illness: Breast CA HTN A.FIB. Urticaria. OA - Current Medication List Current Medications: Active Medications Atenolol (Tenormin -) 25 mg PO DAILY [facility] Last Admin: 03/25/18 09:55 Dose: 25 mg Atorvastatin Calcium (Lipitor -) 40 mg PO HS [facility] Last Admin: 03/25/18 21:19 Dose: 40 mg Calcium/Vitamin D (Oscal 250 Mg+D -) 1 tab PO DAILY [facility] Last Admin: 03/25/18 09:55 Dose: 1 tab Sodium Chloride (Normal Saline -) 1,000 mls @ 42 mls/hr IV ASDIR [facility] Last Admin: 03/25/18 18:01 Dose: Not Given Multivitamins/Minerals/Vitamin C (Tab-A-Vit -) 1 tab PO DAILY [facility] Last Admin: 03/25/18 09:55 Dose: 1 tab Rivaroxaban (Xarelto -) 20 mg PO DAILY@1800 [facility] Last Admin: 03/25/18 18:03 Dose: 20 mg Spironolactone (Aldactone -) 25 mg PO Q48H [facility] Last Admin: 03/25/18 09:55 Dose: 25 mg - Objective Vital Signs: Vital Signs Temperature 98.4 F 03/26/18 05:00 Pulse Rate 75 03/26/18 05:00 Respiratory Rate 18 03/26/18 05:00 Blood Pressure 153/96 03/26/18 05:00 O2 Sat by Pulse Oximetry (%) 95 03/25/18 20:50 Constitutional: Yes: No Distress, Calm Eyes: Yes: Conjunctiva Clear, EOM Intact HENT: Yes: Atraumatic, Normocephalic Neck: Yes: Supple, Trachea Midline. No: Decreased ROM, Lymphadenopathy Cardiovascular: Yes: Pulse Irregular, S1, S2. No: JVD Respiratory: Yes: Regular, CTA Bilaterally Gastrointestinal: Yes: Normal Bowel Sounds, Soft. No: Abdomen, Obese ...Rectal Exam: Yes: Deferred Genitourinary: No: Anuria, Bladder Distention, CVA Tenderness - Left Breast(s): Yes: Other (Mastectomy on the right) Musculoskeletal: Yes: WNL Extremities: Yes: WNL Edema: No Integumentary: Yes: WNL Neurological: Yes: WNL ...Motor Strength: WNL Psychiatric: Yes: WNL Labs: CBC, BMP 03/25/18 06:00 03/24/18 16:30 INR, PTT INR 1.33 (0.83-1.09) H 03/24/18 16:30 Problem List - Problems (1) A-fib Assessment/Plan: Continue Xarelto Code(s): I48.91 - UNSPECIFIED ATRIAL FIBRILLATION Qualifiers: Atrial fibrillation type: chronic Qualified Code(s): I48.2 - Chronic atrial fibrillation (2) HLD (hyperlipidemia) Assessment/Plan: Atorva 40 Code(s): E78.5 - HYPERLIPIDEMIA, UNSPECIFIED (3) TIA (transient ischemic attack) Assessment/Plan: Noted CT scan MRI brain C+ ordered Neuro f/u Carotids-neg US Code(s): G45.9 - TRANSIENT CEREBRAL ISCHEMIC ATTACK, UNSPECIFIED (4) Temporal lobe lesion Assessment/Plan: Follow MRI with the contrast Neuro F/U. Code(s): G93.9 - DISORDER OF BRAIN, UNSPECIFIED
[2018-03-26] MEDS: MULTIVITAMINS (DAILY MVI) TABLET (FP) PO SCH (09:17)
[2018-03-26] MEDS: ATENOLOL 25 MG TABLET (FP) PO SCH (09:17)
[2018-03-26] MEDS: CALCIUM 250MG/VIT-D 125 UNITS 1 COMBO TABLET PO SCH (09:17)
--- NOTE | 2018-03-26 10:04 | PN ---
Progress Note, [employer] - Note Progress Note: Pt sen with son present. Speech,language,swallowing,cognition at baseline. Spontaneous recovery of expressive language deficits. No further f/u indicated at this time.
[2018-03-26] MEDS ORDERED: PT OWN MED DRAWER 7, Y5N ONE (17:05)
[2018-03-26] MEDS: RIVAROXABAN 20 MG TABLET PO SCH (17:16)
[2018-03-26] MEDS: ATORVASTATIN CA 40 MG TABLET (FP) PO SCH (21:16)
[2018-03-26] MEDS: SODIUM CHLORIDE 1,000 ML IV SCH (21:16)
[2018-03-27] MEDS ORDERED: PT OWN MED DRAWER 7, Y5N ONE (08:54)
[2018-03-27] MEDS: SPIRONOLACTONE 25 MG TABLET (FP) PO SCH (09:06)
[2018-03-27] MEDS: MULTIVITAMINS (DAILY MVI) TABLET (FP) PO SCH (09:11)
[2018-03-27] MEDS: CALCIUM 250MG/VIT-D 125 UNITS 1 COMBO TABLET PO SCH (09:12)
[2018-03-27] MEDS: ATENOLOL 25 MG TABLET (FP) PO SCH (09:24)
[2018-03-27 13:38] VITALS: BP 149/77; PULSE 69; TEMP 97.5
--- NOTE | 2018-03-27 14:19 | PN ---
Progress Note (short form) - Note Progress Note: MRI with contrast no acute lesions, no masses Vital Signs Temp 97.5 F L 03/27/18 10:00 Pulse 69 03/27/18 10:00 Resp 18 03/27/18 10:00 BP 149/77 03/27/18 10:00 Pulse Ox 99 03/27/18 10:00 Intake & Output 03/26/18 03/27/18 03/27/18 23:59 11:59 23:59 Intake Total 720 240 Balance 720 240 Intake: Oral 720 240 Other: Voiding Method Toilet Toilet # Unmeasured Voids Void 1 2 Bowel Movement No No Will d/c home F/U as outpt and neurology f/u Continue xarelto Problem List - Problems (1) A-fib Code(s): I48.91 - UNSPECIFIED ATRIAL FIBRILLATION Qualifiers: Atrial fibrillation type: chronic Qualified Code(s): I48.2 - Chronic atrial fibrillation (2) HLD (hyperlipidemia) Code(s): E78.5 - HYPERLIPIDEMIA, UNSPECIFIED (3) TIA (transient ischemic attack) Code(s): G45.9 - TRANSIENT CEREBRAL ISCHEMIC ATTACK, UNSPECIFIED (4) Temporal lobe lesion Code(s): G93.9 - DISORDER OF BRAIN, UNSPECIFIED
--- NOTE | 2018-03-27 14:20 | DS ---
Physical Examination Vital Signs: Vital Signs Temperature 97.5 F L 03/27/18 10:00 Pulse Rate 69 03/27/18 10:00 Respiratory Rate 18 03/27/18 10:00 Blood Pressure 149/77 03/27/18 10:00 O2 Sat by Pulse Oximetry (%) 99 03/27/18 10:00 Constitutional: Yes: No Distress, Anxious Eyes: Yes: Conjunctiva Clear, EOM Intact HENT: Yes: Atraumatic, Normocephalic Neck: Yes: Supple, Trachea Midline Cardiovascular: Yes: Pulse Irregular Respiratory: Yes: Regular, CTA Bilaterally Gastrointestinal: Yes: Normal Bowel Sounds, Soft. No: Abdomen, Obese ...Rectal Exam: Yes: Deferred Renal/: No: Anuria, Bladder Distention, CVA Tenderness - Left, CVA Tenderness - Right Breast(s): Yes: Other (mastectomy right) Musculoskeletal: Yes: WNL Extremities: Yes: WNL. No: Calf Tenderness Edema: No Integumentary: Yes: WNL Neurological: Yes: WNL, Alert, Oriented. No: Aphasia, Ataxia ...Motor Strength: WNL Psychiatric: Yes: WNL Labs: CBC, BMP 03/25/18 06:00 03/24/18 16:30 Discharge Summary Reason For Visit: TRANSIENT ISCHEMIC ATTACK Condition: Good - Instructions Referrals: Michael Taylor MD [Primary Care Provider] - Disposition: HOME - Home Medications Comprehensive Discharge Medication List: Ambulatory Orders Atenolol [Tenormin -] 25 mg PO DAILY #30 tablet 03/29/12 Atorvastatin Ca [Lipitor] 40 mg PO HS #30 tablet 03/29/12 Rivaroxaban [Xarelto -] 20 mg PO DAILY 03/24/18 Spironolactone 25 mg PO ASDIR 03/24/18
== END 2018-03-27 14:05 | disposition home or self-care (01) ==
LOC: JER 16:12 → JERBED 18:54 → J4S 03-25 00:27
PROVIDERS: ADMIT Internal Medicine; ATTEND Internal Medicine
DX: G45.9 Transient cerebral ischemic attack, unspecified (principal); I48.91 Unspecified atrial fibrillation; I25.10 Atherosclerotic heart disease of native coronary artery without angina pectoris; E78.5 Hyperlipidemia, unspecified; M17.0 Bilateral primary osteoarthritis of knee; G47.30 Sleep apnea, unspecified; Z99.81 Dependence on supplemental oxygen; Z88.6 Allergy status to analgesic agent; Z90.11 Acquired absence of right breast and nipple; Z86.73 Personal history of transient ischemic attack (TIA), and cerebral infarction without residual deficits; Z85.3 Personal history of malignant neoplasm of breast; Z79.01 Long term (current) use of anticoagulants
CPT/HCPCS: 36415; 70450-TC; 70551-TC; 70552-TC; 71045-TC-FY; 80053; 80061; 81003; 81015; 82465; 82550; 83036; 83718; 83721; 83735; 84100; 84443; 84478; 84484; 85025; 85610; 86850; 86900; 86901; 93005; 93010; 93880-TC; 99285-25; G0378; J7030